=== PATIENT | female | born 1960 | race Caucasian/White ===

== ENCOUNTER → 2017-11-26 13:00 | Outpatient (CLI) | payer MEDICARE, SELFPAY ==
--- NOTE | 2017-11-26 | DI.MRI.S_ITS ---
PROCEDURE: MR HEAD/BRAIN WO/W CON INDICATIONS: neoplasm with UNCERTAIN BEHAVIOR OF BRAIN TECHNIQUE: Noncontrast axial T1 spin echo, axial T2 fast spin echo, sagittal and axial FLAIR, coronal T2 fast spin echo, axial gradient echo, axial diffusion and ADC through the brain. After the administration of contrast, axial and coronal T1 spin echo with fat saturation through the brain. COMPARISON: No prior studies are available for review at the time of this dictation. FINDINGS: Image quality: Diagnostic. CSF spaces: Basal cisterns are patent. No extra-axial fluid collections. Ventricles are normal in size and shape. Brain: No midline shift. No intracranial bleeds or masses. No abnormal intracranial enhancement. There is cerebral volume loss for age. There is periventricular white matter T2 hyperintense lesions seen, which are most prominent involving the right frontal lobe anteriorly and superiorly. The brainstem appears normal. Diffusion-weighted images demonstrate no acute ischemic insults. No chronic ischemic insults. Normal intravascular flow voids are present. Skull and face: Calvarial marrow is normal in signal. Orbits appear normal. Sinuses: Sinuses and mastoids appear clear. IMPRESSION: No masses or abnormal enhancement can be seen. T2 hyperintense white matter lesions are seen. The patient of this age, these most likely relate to chronic small vessel ischemic change. However, differential diagnosis also includes a benign process and nonenhancing brain neoplasm in this patient with this given history. Please correlate with any prior relevant outside examinations. Dictated by: Adrian Irene M.D. on 11/26/2017 at 13:32 Approved by: Adrian Irene M.D. on 11/26/2017 at 13:43
== END ==
PROVIDERS: Visit Provider Family Medicine
DX: D43.2 Neoplasm of uncertain behavior of brain, unspecified (principal)
CPT/HCPCS: 70553; A9579

== ENCOUNTER 2018-07-16 11:28 | Day surgery (SDC) | payer MEDICARE, SELFPAY ==
[2018-07-16 12:02] VITALS: BP 134/84; PULSE 80; RESP 16; TEMP 36.8; O2SAT 100; BMI 26.2
[2018-07-16] MEDS: SODIUM CHLORIDE 0.9% 1,000 ML 200 ML IV (12:03)
--- NOTE | 2018-07-16 12:37 | PM.HP.1 ---
History of Present Illness Date Patient Seen: 07/16/18 Time Patient Seen: 12:37 Chief complaint: colonoscopy 21777 Narrative: 57-year-old female who presents for colorectal screening. Her last examination was 15 years ago. She reports the study was normal at that time. On further history today she denies any gastrointestinal symptoms. No nausea, vomiting, abdominal pain, unintended weight loss, change in bowel habits, diarrhea, constipation, melena, hematochezia, or bright red blood per rectum. Patient History Medical History Yuriy's disease (Acute) Hypothyroidism (Acute) Intracranial neoplasm (Acute) Surgical History History of appendectomy (Acute) History of colonoscopy (Acute) History of recent intracranial surgery (Acute) Social History household members: significant other Family & Social History Social History: household members significant other Meds Home Medications Medication Instructions Recorded Confirmed Type Tirosint 100 mcg DAILY #0 08/26/16 07/16/18 History promethazine #0 08/27/16 History pantoprazole [Protonix] 40 mg PO QDAY #30 tab 08/28/16 Rx Allergies Allergy/AdvReac Type Severity Reaction Status Date / Time fish derived [FISH DERIVED] Allergy Intermediate CONVULSIONS Verified 07/16/18 11:58 morphine [MORPHINE] AdvReac Intermediate NAUSEA AND Verified 07/16/18 11:58 VOMITING. Review of Systems Review of Systems All systems reviewed & are unremarkable except as noted in HPI and below Exam Vital Signs (past 8 hours): - 07/16/18 12:02 Temperature 98.2 F Pulse Rate 80 Respiratory Rate 16 Blood Pressure 134/84 Pulse Oximetry 100 Oxygen Delivery Method Room Air Narrative Exam Narrative: Well-nourished well-developed female in no acute distress. Alert oriented x3 Sclera nonicteric Chest clear to auscultation bilaterally. Regular rate rhythm Abdomen is soft, nondistended, nontender Extremities show no clubbing or cyanosis Objective Labs Labs: No recent laboratory or radiographic studies for review Assessment & Plan Assessment Narrative: 57-year-old female requiring colorectal screening since it has been 15 years from her last examination. Colonoscopy is currently recommended. Technical details of the procedure were discussed. Risks, benefits, alternatives were explained. Risks including but not limited to sedation, aspiration, bleeding, pain, missed lesion, incomplete examination, need for further radiographic studies, colonic perforation, need for major abdominal surgery, and all attendant risks of major surgery were discussed at length. All questions were answered to her satisfaction, and she voiced understanding. Consent was placed on the chart. We will proceed as above.
--- NOTE | 2018-07-16 12:40 | PM.PREOP ---
Pre-operative Note Interval Note History & Physical reviewed/Exam performed by Physician: Yes Changes to H&P: No H&P completed within 30 days and has changed as indicated here:: Patient seen and examined today. History and physical examination placed on the chart. Obviously, there have been no changes in the last 10 min. Proceed with colonoscopy today as planned. ASA Class (for procedural sedation): II
[2018-07-16] MEDS: MIDAZOLAM 5 MG/5 ML VIAL IV (12:47)
[2018-07-16] MEDS: fentaNYL 250 MCG/5 ML INJ IV (12:47)
--- NOTE | 2018-07-16 13:07 | PM.OP.ENDO ---
Operative Date/Time/Diagnoses Date of procedure: 07/16/18 Time of procedure: 13:07 Pre-op diagnosis: Colorectal screening Post-op diagnosis: other (Normal colon and rectum) Procedure & Clinicians Study performed: 1. Sedation per surgeon 2. Colonoscopy Same procedure as scheduled: Yes Indications: 57-year-old female who presents for colorectal screening. Fifteen years since her last exam. Colonoscopy is currently recommended. Surgeon: Kapil Au Procedure Notes SCOAP/Timeout: Yes Procedure in detail: After obtaining informed consent, the patient was brought to the GI suite and placed in the left lateral decubitus position on the examination table. After placement of appropriate monitors, the patient was given incremental doses of Versed and Fentanyl until an appropriate level of sedation was achieved. A time out was held per SCOAP protocol. A digital rectal examination was performed and did not reveal any masses or obstructing lesions. The colonoscope was gently passed into the patient's anus and the entire colon navigated to the level of the cecum with minimal difficulty. Once in the cecum, the scope was withdrawn being sure to go before and beyond all mucosal folds and prominences and get an excellent examination. The findings are noted above. At the level of the rectal vault, the scope was retroflexed and the internal anal canal was examined. The scope was straightened and air aspirated from the colon. The instrument was removed from the patient's body and the procedure was concluded. The patient was allowed to awaken from sedation without difficulty and taken to the post-anesthesia care unit in good condition. Scope withdrawal time: 9:47 min Sedation minutes: 23 Findings: internal hemorrhoids (Grade 2 only) and other findings (Mildly tortuous but otherwise normal colon and rectum) Specimen(s): none sent Complications: none Impression: See above Recommendations: Colonscopy in 10 years and High fiber diet Plan for aftercare: 1. Discharge home Follow up: as needed Disposition: PACU
[2018-07-16 13:16] VITALS: BP 113/76; PULSE 73; RESP 15; TEMP 36.2; O2SAT 98
== END 2018-07-16 13:37 | disposition home or self-care (01) ==
PROVIDERS: PCP Family Medicine; Visit Provider Surgery
PROC: 0DJD8ZZ Inspection of Lower Intestinal Tract, Via Natural or Artificial Opening Endoscopic (ICD-10-PCS; CPT 45378; principal; 2018-07-16 13:00)
DX: Z12.11 Encounter for screening for malignant neoplasm of colon (principal); K64.1 Second degree hemorrhoids; E03.9 Hypothyroidism, unspecified
CPT/HCPCS: G0121; 99152; 99153; J2250; J3010

== ENCOUNTER → 2020-05-12 10:52 | Outpatient (CLI) | payer MEDICARE, SELFPAY ==
--- NOTE | 2020-05-12 10:55 | DI.MG.S_ITS ---
BILATERAL DIGITAL SCREENING MAMMOGRAM 3D/2D WITH CAD: 05/12/2020 CLINICAL: Routine screening. Family history of breast cancer. Comparison is made to exams dated: 02/22/2013 mammogram, 08/03/2018 mammogram, and 08/12/2018 ultrasound - [facility]. The tissue of both breasts is heterogeneously dense. This may lower the sensitivity of mammography. Current study was also evaluated with a Computer Aided Detection (CAD) system. There is a benign cyst in the left breast. No significant masses, calcifications, or other findings are seen in either breast. There has been no significant interval change. IMPRESSION: BENIGN There is no mammographic evidence of malignancy. A 1 year screening mammogram is recommended. This exam was interpreted at Station ID: [id number]. NOTE: For mammograms, a report in lay terms will be sent to the patient. Approximately 15% of breast malignancies will not be visualized mammographically. In the management of a palpable breast mass, a negative mammogram must not discourage biopsy of a clinically suspicious lesion. Electronically Signed By: Parish miranda/yin:05/12/2020 12:12:50 letter sent: Normal Exam ACR BI-RADS Category 2: Benign Finding(s) 3342F
== END ==
PROVIDERS: PCP Family Medicine; Referring Provider Family Medicine; Visit Provider Family Medicine
DX: Z12.31 Encounter for screening mammogram for malignant neoplasm of breast (principal); Z80.3 Family history of malignant neoplasm of breast
CPT/HCPCS: 77063; 77067

== ENCOUNTER → 2021-11-27 07:41 | Outpatient (CLI) | payer MEDICARE, SELFPAY ==
--- NOTE | 2021-11-27 | DI.MG.S_ITS ---
BILATERAL DIGITAL SCREENING MAMMOGRAM 3D/2D WITH CAD: 11/27/2021 CLINICAL: Routine screening. Family history of breast cancer. Comparison is made to exams dated: 05/12/2020 mammogram - [facility], 08/03/2018 mammogram, and 02/22/2013 mammogram - [facility]. The tissue of both breasts is heterogeneously dense. This may lower the sensitivity of mammography. Current study was also evaluated with a Computer Aided Detection (CAD) system. No significant masses, calcifications, or other findings are seen in either breast. There has been no significant interval change. IMPRESSION: NEGATIVE There is no mammographic evidence of malignancy. A 1 year screening mammogram is recommended. This exam was interpreted at Station ID: [id number]. NOTE: For mammograms, a report in lay terms will be sent to the patient. Approximately 15% of breast malignancies will not be visualized mammographically. In the management of a palpable breast mass, a negative mammogram must not discourage biopsy of a clinically suspicious lesion. Electronically Signed By: Iglesia yip/yin:11/27/2021 09:36:52 letter sent: Normal Exam ACR BI-RADS Category 1: Negative 3341F
== END ==
PROVIDERS: PCP Family Medicine; Referring Provider Family Medicine; Visit Provider Family Medicine
DX: Z12.31 Encounter for screening mammogram for malignant neoplasm of breast (principal); Z80.3 Family history of malignant neoplasm of breast
CPT/HCPCS: 77063; 77067

== ENCOUNTER → 2021-12-03 07:24 | Outpatient (CLI) | payer MEDICARE, SELFPAY ==
--- NOTE | 2021-12-03 | DI.MRI.S_ITS ---
PROCEDURE: MR HEAD/BRAIN WO/W CON INDICATIONS: Benign neoplasm of cerebral meninges TECHNIQUE: Noncontrast axial T1 spin echo, axial T2 fast spin echo, sagittal and axial FLAIR, coronal T2 fast spin echo, axial gradient echo, axial diffusion and ADC through the brain. After the administration of contrast, axial and coronal and sagittal T1 spin echo with fat saturation through the brain. COMPARISON: Outside Facility, [facility], MRI HEAD W/WO CONTRAST, 08/04/2013, 10:51. Outside Facility, [facility], MRI HEAD W/WO CONTRAST, 01/03/2014, 18:34. Outside Facility, [facility], MRI HEAD W/WO CONTRAST, 02/02/2015, 14:35. [facility], , MR HEAD/BRAIN WO/W CON, 11/26/2017, 13:11. FINDINGS: Image quality: Excellent. CSF spaces: Basal cisterns are patent. No extra-axial fluid collections. Ventricles are normal in size and shape. Brain: No midline shift. No intracranial bleeds or masses. No abnormal intracranial enhancement. There is cerebral volume loss for age. There is periventricular white matter chronic small vessel ischemic change. The brainstem appears normal. Diffusion-weighted images demonstrate no acute ischemic insults. No chronic ischemic insults. Normal intravascular flow voids are present. Skull and face: Calvarial marrow is normal in signal. Orbits appear normal. Sinuses: Mild mucosal thickening within the left frontal sinus. Sinuses are otherwise clear. Decreased, moderate left mastoid fluid. Right mastoids are clear. IMPRESSION: 1. Mild volume loss and small vessel ischemic disease. 2. No evidence of recurrent meningioma. 3. No acute process. No recent infarct. 4. Postsurgical sequelae within the left mastoids. Dictated by: Farnaz Silva M.D. on 12/03/2021 at 9:49 Approved by: Farnaz Silva M.D. on 12/03/2021 at 9:53
== END ==
PROVIDERS: PCP Family Medicine; Referring Provider Family Medicine; Visit Provider Family Medicine
DX: D32.0 Benign neoplasm of cerebral meninges (principal)
CPT/HCPCS: 70553; A9579

== ENCOUNTER → 2022-11-28 10:38 | Outpatient (CLI) | payer MEDICARE, SELFPAY ==
--- NOTE | 2022-11-28 | DI.MG.S_ITS ---
BILATERAL DIGITAL SCREENING MAMMOGRAM 3D/2D WITH CAD: 11/28/2022 CLINICAL: Routine screening. Family history of breast cancer. Comparison is made to exams dated: 11/27/2021 mammogram, 05/12/2020 mammogram - [facility], and 08/03/2018 mammogram - [facility]. Both breasts are heterogeneously dense, which may obscure small masses (category c / 51-75% glandular tissue). Current study was also evaluated with a Computer Aided Detection (CAD) system. No significant masses, calcifications, or other findings are seen in either breast. There has been no significant interval change. IMPRESSION: NEGATIVE There is no mammographic evidence of malignancy. A 1 year screening mammogram is recommended. Based on Tyrer-Cuzick model (a risk assessment model), the patient's lifetime risk is 24.5% and her 10 year risk is 12.0%. If a patient has an elevated risk, a more comprehensive evaluation should be considered and/or a referral to a genetic counselor. The [employer], [employer], and NCCN Guidelines advise the consideration of Breast MRI as an adjunct to screening mammography in patients whose Lifetime risk to develop breast cancer is 20% or higher. This exam was interpreted at Station ID: [id number]. NOTE: For mammograms, a report in lay terms will be sent to the patient. Approximately 15% of breast malignancies will not be visualized mammographically. In the management of a palpable breast mass, a negative mammogram must not discourage biopsy of a clinically suspicious lesion. Electronically Signed By: Suhail aguirre/yin:11/28/2022 13:09:25 letter sent: Normal Exam ACR BI-RADS Category 1: Negative 3341F
== END ==
PROVIDERS: PCP Physician Assistant; Referring Provider Physician Assistant; Visit Provider Physician Assistant
DX: Z12.31 Encounter for screening mammogram for malignant neoplasm of breast (principal); Z80.3 Family history of malignant neoplasm of breast
CPT/HCPCS: 77063; 77067

== ENCOUNTER 2023-04-18 21:02 | Emergency (ER) | payer MEDICARE, SELFPAY ==
[2023-04-18] VITALS (8 sets, daily range): BP systolic 157–219; BP diastolic 80–107; PULSE 72–78; RESP 16–34; TEMP 36.8; O2SAT 93–95; BMI 32.8
--- NOTE | 2023-04-18 21:21 | DI.RAD.S_ITS ---
PROCEDURE: XR CHEST 1V INDICATIONS: chest pain TECHNIQUE: One view of the chest was acquired. COMPARISON: [facility], , CHEST 1 VIEW, 08/26/2016, 23:27. FINDINGS: Surgical changes and devices: None. Lungs and pleura: Lungs are clear. No pleural effusions or pneumothorax. Mediastinum: Mediastinal contours appear normal. Heart size is normal. Bones and chest wall: No suspicious bony lesions. Overlying soft tissues appear unremarkable. IMPRESSION: No acute cardiopulmonary pathology. Dictated by: Evan Lindsey M.D. on 04/18/2023 at 21:51 Approved by: Evan Lindsey M.D. on 04/18/2023 at 21:52
[2023-04-18 21:47] LABS: Alanine Aminotransferase 53 IU/L (<35); Albumin 4.7 g/dL (3.5-5.0); Albumin Globulin Ratio 1.4 (1.0-2.8); Alkaline Phosphatase 67 U/L (38-126); Aspartate Aminotransferase 35 IU/L (14-36); BUN Creatinine Ratio 28.4 (6-22); Bilirubin Total 0.6 mg/dL (0.2-1.3); Blood Urea Nitrogen 19 mg/dL (7-17); Calcium 10.6 mg/dL (8.4-10.2); Carbon Dioxide 21 mmol/L (22-32); Chloride 106 mmol/L (98-107); Creatine Kinase 126 U/L (30-135); Estimated Glomerular Filt Rate > 60 mL/min (>60); Globulin 3.4 g/dL (1.7-4.1); Glucose 128 mg/dL (80-110); HEMOLYSIS 22 (0-50); INR 0.9 (0.9-1.3); Lipase 191 U/L (23-300); Potassium 4.1 mmol/L (3.4-5.1); Prothrombin Time 10.8 SECONDS (10.1-12.7); Sodium 139 mmol/L (137-145); Total Protein 8.1 g/dL (6.3-8.2)
[2023-04-18 21:48] LABS: Hematocrit 40.9 % (36-46); Hemoglobin 13.9 g/dL (12.0-16.0); Lymphocytes Percent Auto 48.2 % (25-40); Mean Corpuscular HGB Conc 33.9 % (30-36); Mean Corpuscular Hemoglobin 29.4 PG (26-34); Mean Corpuscular Volume 86.8 fL (80-100); Monocytes Percent Auto 8.2 % (3-14); Neutrophils Percent Auto 38.8 % (50-75); Platelet Count 290 X10^3/uL (150-400); Red Blood Cell Count 4.71 X10^6/uL (4.0-5.2); Red Cell Distribution Width 13.8 % (11.6-14.8); White Blood Cell Count 9.1 X10^3/uL (4.5-11.0)
[2023-04-18 21:49] LABS: Add Manual Diff / Slide Review NO; Basophils Absolute Auto 100 /uL (0-100); Basophils Percent Auto 0.8 % (0-2); Eosinophils Absolute Auto 400 /uL (0-450); Lymphocytes Absolute Auto 4400 /uL (1100-4500); Monocytes Absolute Auto 700 /uL (0-900); Neutrophils Absolute Auto 3500 /uL (1500-7000)
[2023-04-18 21:50] LABS: PTT Partial Thromboplastin Tim 30 SECONDS (26-36)
[2023-04-18 21:58] LABS: Troponin I < 0.012 ng/mL (0.01-0.034)
[2023-04-19] VITALS (11 sets, daily range): BP systolic 139–179; BP diastolic 74–98; PULSE 73–86; RESP 14–20; O2SAT 94–96
--- NOTE | 2023-04-19 00:01 | ED.CHESTPAIN ---
HPI - Chest Pain General Chief Complaint: Chest Pain Stated Complaint: chest pain last 4 hours Time Seen by Provider: 04/18/23 22:48 Source: patient Mode of arrival: Ambulatory Limitations: no limitations History of Present Illness HPI narrative: 62-year-old woman with a history of Yuriy's disease and subsequent hypothyroidism presents complaining of 24 hours of substernal to epigastric and left upper quadrant abdominal pain radiating through to the tip of her left scapula. She is never had similar findings. It seems to come in waves that are not associated with eating, fasting or movement. She had a bowel movement about an hour ago and this did not influence her pain. No palpitations, dyspnea, nausea, vomiting, diarrhea, fever or chills. Was noted to have high blood pressure at home at 179/28 and does not have a diagnosis of hypertension. Related Data Home Medications Medication Instructions Recorded Confirmed levothyroxine 13 mcg capsule 100 mcg DAILY ##0 08/26/16 07/16/18 (Tirosint) promethazine 12.5 mg tablet nausea ##0 08/27/16 Previous Rx's Medication Instructions Recorded pantoprazole 40 mg tablet,delayed 40 mg PO QDAY #30 tabs 08/28/16 release (Protonix) omeprazole 40 mg capsule,delayed 40 mg PO DAILY #30 caps 04/19/23 release Allergies Allergy/AdvReac Type Severity Reaction Status Date / Time fish derived [FISH DERIVED] Allergy Intermediate CONVULSIONS Verified 04/18/23 21:20 morphine [MORPHINE] AdvReac Intermediate NAUSEA AND Verified 04/18/23 21:20 VOMITING. Review of Systems Review of Systems Narrative: Pertinent positive and negative findings as per HPI Patient History Medical History (Updated 04/19/23 @ 02:27 by Mara Chisholm MD) Intracranial neoplasm Hypothyroidism Yuriy's disease Surgical History History of recent intracranial surgery History of colonoscopy History of appendectomy Social History household members: significant other Smoking Status: Never smoker Smoking Status: Never smoker alcohol intake frequency: 0-2 drinks per day Substance Use Type: does not use Exam Initial Vital Signs Initial Vital Signs: Vital Signs Temperature 98.2 F 04/18/23 21:13 Pulse Rate 76 04/18/23 21:13 Respiratory Rate 20 04/18/23 21:13 Blood Pressure 219/107 H 04/18/23 21:13 Pulse Oximetry 95 04/18/23 21:13 Oxygen Delivery Method Room Air 04/18/23 21:13 General: Healthy appearing, in no acute distress. Able to give a complete and coherent history. Well-nourished well-developed HEENT: Moist mucous membranes, normal sclera with reactive pupils, Neck: No JVD, supple Respiratory: Lungs are clear to auscultation, no wheezing no rales no rhonchi. Full and symmetrical air movement Chest: No parasternal tenderness with palpation. Cardiac: Regular rate and rhythm no murmurs no bruits Abdomen: Soft, mild tenderness in the epigastrium and left upper quadrant that does reproduce the pain with which she presents, good bowel tones, no flank pain Skin: Warm and dry, no rashes Neurologic: Grossly neurologically intact with no obvious asymmetries or abnormalities Extremities: No trauma, well perfused Psych: Cooperative, appropriate insight and affect Course Orders Ordered: ED Orders 04/18/23 21:15 Complete Blood Count AUTO DIFF Stat Comprehensive Metabolic Panel Stat Lipase Stat Magnesium Stat PTT Partial Thromboplastin Raman Stat Prothrombin Time INR Stat Troponin & CK Cardiac Panel Stat 04/18/23 21:21 XR chest 1V Stat EKG-12 Lead Stat 04/19/23 00:14 CT abdomen pelvis w con Stat Discontinued Medications Al Hydrox/Mg Hydrox/Simethicone 20 ml/ Lidocaine HCl 15 ml 0 ml PO NOW ONE Stop: 04/19/23 00:15 Last Admin: 04/19/23 00:21 Dose: 35 ml Documented By: MILLER Ketorolac Tromethamine (Ketorolac 30 Mg/Ml Vial) 15 mg IV NOW ONE Stop: 04/19/23 00:15 Last Admin: 04/19/23 00:39 Dose: 15 mg Documented By: MYNOR Pantoprazole Sodium (Pantoprazole 40 Mg Vial) 40 mg IV NOW ONE Stop: 04/19/23 00:15 Last Admin: 04/19/23 00:22 Dose: 40 mg Documented By: MILLER Vital Signs Vital signs: Vital Signs - 8 hr 04/18/23 21:13 04/18/23 21:14 04/18/23 21:30 Temperature 98.2 F Pulse Rate 76 78 77 Respiratory Rate 20 34 H Blood Pressure 219/107 H Pulse Oximetry 95 93 94 Oxygen Delivery Method Room Air 04/18/23 22:00 04/18/23 22:00 04/18/23 22:30 Temperature Pulse Rate 76 Respiratory Rate 16 Blood Pressure 167/91 H 173/86 H Pulse Oximetry 94 Oxygen Delivery Method 04/18/23 22:30 04/18/23 23:00 04/18/23 23:00 Temperature Pulse Rate 72 74 Respiratory Rate 18 19 Blood Pressure 157/80 H Pulse Oximetry 94 93 Oxygen Delivery Method MDM - Chest Pain Lab Data 04/18/23 21:15 04/18/23 21:15 Labs: Lab Results 04/18/23 Range/Units 21:15 WBC 9.1 (4.5-11.0) X10^3/uL RBC 4.71 (4.0-5.2) X10^6/uL Hgb 13.9 (12.0-16.0) g/dL Hct 40.9 (36-46) % MCV 86.8 (80-100) fL MCH 29.4 (26-34) PG MCHC 33.9 (30-36) % RDW 13.8 (11.6-14.8) % Plt Count 290 (150-400) X10^3/uL Neut % (Auto) 38.8 L (50-75) % Lymph % (Auto) 48.2 H (25-40) % [place] % (Auto) 8.2 (3-14) % Eos % (Auto) 4.0 (2-4) % Baso % (Auto) 0.8 (0-2) % Neut # (Auto) 3500 (6517-9390) /uL Lymph # (Auto) 4400 (2401-9619) /uL [place] # (Auto) 700 (0-900) /uL Eos # (Auto) 400 (0-450) /uL Baso # (Auto) 100 (0-100) /uL PT 10.8 (10.1-12.7) SECONDS INR 0.9 (0.9-1.3) APTT 30 (26-36) SECONDS Sodium 139 (137-145) mmol/L Potassium 4.1 (3.4-5.1) mmol/L Chloride 106 (98-107) mmol/L Carbon Dioxide 21 L (22-32) mmol/L BUN 19 H (7-17) mg/dL Creatinine 0.67 (0.52-1.04) mg/dL Estimated GFR > 60 (>60) mL/min BUN/Creatinine Ratio 28.4 H (6-22) Glucose 128 H (80-110) mg/dL Calcium 10.6 H (8.4-10.2) mg/dL Magnesium 2.0 (1.6-2.3) mg/dL Total Bilirubin 0.6 (0.2-1.3) mg/dL AST 35 (14-36) IU/L ALT 53 H (<35) IU/L Alkaline Phosphatase 67 (38-126) U/L Total Creatine Kinase 126 (30-135) U/L Troponin I < 0.012 (0.01-0.034) ng/mL Total Protein 8.1 (6.3-8.2) g/dL Albumin 4.7 (3.5-5.0) g/dL Globulin 3.4 (1.7-4.1) g/dL Albumin/Globulin Ratio 1.4 (1.0-2.8) Lipase 191 (23-300) U/L Imaging Data CT scan - abdomen/pelvis: Radiologist's Impression: 1. Questionable diffuse gastric wall thickening which may be due to under distension. Gastritis cannot be excluded, suggest clinical correlation. 2. Mild constipation. No small bowel or colon wall thickening. No free fluid or free air. 3. Hepatic steatosis, with well-circumscribed sub centimeters hypodensities seen in right and left hepatic lobe likely represent benign process such as hepatic cysts. MDM Narrative Medical decision making narrative: CC: Epigastric to substernal chest pain radiating to the left shoulder blade Complicating co-morbidities: Hypothyroidism Data collected from: patient, Differential considered: Acute coronary syndrome, pneumothorax, pleuritic pain, pneumonia, gastritis, gastric ulcer, pancreatitis, abdominal neoplasm Exam documented above, pertinent findings include: No reproducible chest pain with palpation, heart and lungs are unremarkable. Tender in the epigastrium to left upper quadrant without rebound or guarding. Lab Test results independently reviewed as above. Pertinent findings: CBC is unremarkable no evidence of anemia Chemistries are reassuring. Calcium is slightly elevated at 10.6. Initial troponin is undetectable Lipase is unremarkable Independently reviewed EKG sinus rhythm at a rate of 79. Nonspecific T-wave abnormalities Imaging studies independently reviewed: Chest x-ray is unremarkable CT abd/pelvis does not show significant pathology. Question of some gastric wall thickening. Gallbladder, pancreas all appeared normal. There is no free air appreciated Treatments: GI cocktail which was not effective. Toradol which did seem to relieve the pain for a brief bit of time. Pantoprazole IV was also given. Re-evaluations: Patient notes that the Toradol was briefly effective but pain seems to be returning. We talked about narcotic medications however she is driving home. We will give her 4 Percocet tablets to use over the next couple of days should the pain persist. Discussion: 62-year-old woman who presents with 24 hours of substernal epigastric pain radiating through to her left scapula. Cardiac workup is unremarkable. At 24 hours of pain with a negative troponin, a 2nd is not indicated. On physical exam her pain definitely is more abdominal than chest pain. CT scan of the abdomen was obtained and does not have any obvious explanation for her pain. With the question of gastric wall thickening gastritis or developing gastric ulcer certainly is within the differential. At this point there certainly is no evidence of a penetrating ulcer free air in the abdomen. All findings reviewed with patient. We will recommend a month of omeprazole with follow up with her primary care physician within 2-3 weeks. If symptoms are not improving GI consultation may well be the next appropriate step for her. If symptoms change dramatically she understands she does need to return to the emergency department. Questions are answered and she is safe for discharge Discharge Plan Departure Patient Disposition: Home Clinical Impression: Acute epigastric pain Instructions: DI for Epigastric Pain Activity Restrictions/Additional Instructions: Thank you for coming in today. Your visit was very appropriate. There is not any indication that this is your heart causing your symptoms today. When pushing on your belly and pain is reproduced it certainly makes me think of stomach gallbladder or pancreas. Your CT scan did not show significant gallbladder or pancreatic abnormalities. There is no evidence of a perforated ulcer in your stomach. The CT scan also suggests some swelling to the wall of your stomach. This can be related to a virus or inflammation in the lining of the stomach. I am going to give you a prescription for omeprazole, 40 mg to be taken daily. I would recommend trying this for a month. I would also recommend a follow-up with your primary care provider within 2 weeks. If your pain is not obviously improving at that point a referral to a construction contractor maybe the next appropriate step in your workup If you have new findings, develop any black or bloody stool, you are vomiting up anything that looks like blood or coffee-grounds you do need to return to the emergency department Prescriptions: New omeprazole 40 mg capsule,delayed release(DR/EC) 40 mg PO DAILY Qty: 30 0RF No Action Tirosint 13 mcg capsule 100 mcg DAILY Qty: 0 promethazine 12.5 MG tablet Qty: 0 Patient Comments: hasn't taken for years pantoprazole [Protonix] 40 MG tablet,delayed release (DR/EC) 40 mg PO QDAY Qty: 30 0RF Rx Instructions: Does not take this medication Referrals: Ann Macias PA-C [Primary Care Provider] - Stand Alone Forms: Patient Portal/API
--- NOTE | 2023-04-19 00:14 | DI.CT.S_ITS ---
PROCEDURE: CT ABDOMEN PELVIS W CON INDICATIONS: upper abdominal pain TECHNIQUE: After the administration of intravenous contrast, axial sections acquired from the lung bases to the pubic symphysis. Coronal and sagittal reformats were performed. For radiation dose reduction, the following was used: automated exposure control, adjustment of mA and/or kV according to patient size. COMPARISON: None. FINDINGS: Image quality: Excellent. Lung bases: Dependent atelectasis in posterior aspect of bilateral lung bases are seen Heart: No significant findings. ABDOMEN: Liver: There is mild hepatic steatosis. Well-circumscribed hypodense areas are seen in anterior right hepatic dome measures up to 4 mm in size . 5 millimeter hypodensity is noted in lateral segment of left hepatic lobe. Gallbladder: Gallbladder is within normal limits. Biliary ducts: Unremarkable. Pancreas: Unremarkable. Spleen: Unremarkable. Adrenal Glands: Unremarkable. Kidneys and Ureters: Unremarkable. Stomach and Bowel: There is no bowel obstruction. Questionable gastric wall thickening is seen. No small bowel or colon wall thickening. Mild fecal stasis in the colon is seen. At appendix is surgically absent with surgical clips seen in right lower quadrant. No abscess collection. Peritoneum: No abnormal intraperitoneal fluid. No free air. Ventral Wall: No hernias. Abdominal Nodes: No retroperitoneal or mesenteric adenopathy by size criteria. Vessels: Aorta and inferior vena cava are normal in size. PELVIS: Pelvic Organs: Unremarkable. Bladder: Unremarkable. Pelvic Nodes: No enlarged lymph nodes. Miscellaneous: No hernias are seen. Bones: No suspicious bony lesion. No acute vertebral body compression fracture. IMPRESSION: 1. Questionable diffuse gastric wall thickening which may be due to under distension. Gastritis cannot be excluded, suggest clinical correlation. 2. Mild constipation. No small bowel or colon wall thickening. No free fluid or free air. 3. Hepatic steatosis, with well-circumscribed sub centimeters hypodensities seen in right and left hepatic lobe likely represent benign process such as hepatic cysts. Dictated by: Evan Lindsey M.D. on 04/19/2023 at 0:51 Approved by: Evan Lindsey M.D. on 04/19/2023 at 0:54
[2023-04-19] MEDS: MAG HYDROX/ALUMINUM/SIMETH SUS 20 ML, LIDOCAINE VISCOUS 2% 15 ML PO (00:21)
[2023-04-19] MEDS: PANTOPRAZOLE 40 MG VIAL IV (00:22)
[2023-04-19] MEDS: KETOROLAC 30 MG/ML VIAL 15 MG IV (00:39)
[2023-04-19] MEDS: OXYCODONE/APAP 5/325 PREPACK 1 BOTTLE MISC (02:53)
== END 2023-04-19 02:45 | disposition home or self-care (01) ==
PROVIDERS: Emergency Provider Emergency Medicine; PCP Physician Assistant
DX: R10.13 Epigastric pain (principal); R07.9 Chest pain, unspecified
CPT/HCPCS: 71045; 74177; 80053; 82550; 83690; 83735; 84484; 85025; 85610; 85730; 93005; 93010; 96374; 96375; 99284; C9113; J1885; Q9967

== ENCOUNTER → 2023-05-08 11:01 | Outpatient (CLI) | payer MEDICARE, SELFPAY ==
--- NOTE | 2023-05-08 11:05 | DI.MRI.S_ITS ---
BREAST MRI OF BOTH BREASTS: 05/08/2023 CLINICAL: Family history of breast cancer, Dense breast tissue. Comparison is made to exams dated: 11/28/2022 mammogram, 11/27/2021 mammogram, and 05/12/2020 mammogram - [facility]. PROCEDURE: MR BREAST BI WO/W CON INDICATIONS: Encounter for other screening for malignant neopla TECHNIQUE: The patient was placed prone in a dedicated breast imaging coil. Precontrast axial STIR and 3D FLASH without fat saturation sequences were obtained. Both before and after bolus injection of contrast, sequential 1-minute axial 3D FLASH with fat saturation sequences for 3 time points, with subtraction images and maximum intensity projections (MIP's) generated. Delayed sagittal FLASH images with fat saturation were also obtained. Computer-aided detection, including computer algorithm analysis of MRI image data for lesion detection and characterization, pharmacokinetic analysis, with further physician review for interpretation, was performed. FINDINGS: Image quality: Excellent. There is mild left and minimal right background parenchymal enhancement. The breasts are heterogeneously dense. Right breast: No suspicious mass, non-mass enhancement, or focus. Left breast: No suspicious mass, non-mass enhancement, or focus. Miscellaneous: No suspicious findings in the partially visualized anterior mediastinum or upper abdomen. No suspicious adenopathy within the field of view. IMPRESSION: NEGATIVE No suspicious findings in either breast. Recommend annual screening mammogram and supplemental MRI screening. BIRADS 1 COMMENT: The imaging literature indicates that a negative contrast breast MRI examination has a high sensitivity and a moderate specificity for detecting and excluding invasive carcinomas to a detection threshold of 3-5 mm; nonetheless, appropriate clinical and mammographic follow-up are recommended. MRI is not sensitive for detecting DCIS (ductal carcinoma in situ) and may not detect large invasive neoplasms that show only minimal enhancement such as mucinous carcinoma. If there are suspicious calcifications or clinically worrisome palpable masses, then biopsy should still be considered. Invasive neoplasms can be hidden by co-existent and benign enhancement caused by mastitis, hormone therapy effects, radiation therapy, , and recent biopsy or surgery. False positive examinations can occur in a number of circumstances, including breasts that have recently been subject to invasive procedures and those that contain atypical ductal hyperplasia, hormonally stimulated glandular tissue, fat necrosis, or radial scars. This exam was interpreted at Station ID: [id number]. Electronically Signed By: Fer Pemberton M.D. lc/:05/08/2023 14:20:16 letter sent: Normal Exam ACR BI-RADS Category 1: Negative [id number]
== END ==
PROVIDERS: PCP Physician Assistant; Referring Provider Physician Assistant; Visit Provider Physician Assistant
DX: Z12.39 Encounter for other screening for malignant neoplasm of breast (principal)
CPT/HCPCS: 77049; A9579

== ENCOUNTER 2023-08-17 08:47 | Emergency (ER) | payer MEDICARE, SELFPAY ==
[2023-08-17 09:12] VITALS: BP 145/98; PULSE 86; RESP 18; TEMP 36.4; O2SAT 94; BMI 32.8
--- NOTE | 2023-08-17 09:16 | DI.RAD.S_ITS ---
PROCEDURE: XR SHOULDER RT MIN 2V INDICATIONS: fall TECHNIQUE: 3 views of the shoulder were acquired. COMPARISON: [facility], CR, XR CHEST 1V, 04/18/2023, 21:23. FINDINGS: Bones: Negative for acute fracture. The distal clavicle demonstrates chronic irregularity, which is stable compared to 04/18/2023. No dislocation is seen. The visualized ribs appear intact. No suspicious lytic or blastic lesions are seen. Soft tissues: No suspicious soft tissue calcifications. The visualized lung demonstrates an unremarkable appearance. IMPRESSION: No acute bony abnormality. A remote distal right clavicle fracture is seen, which is stable from the prior. If it would be helpful for clinical management decision making, please consider a dedicated, scheduled shoulder MRI for further evaluation (assuming that there is no contraindication). Dictated by: Adrian Irene M.D. on 08/17/2023 at 8:33 Approved by: Adrian Irene M.D. on 08/17/2023 at 8:34
--- NOTE | 2023-08-17 09:27 | DI.RAD.S_ITS ---
PROCEDURE: XR HUMERUS RT 2V INDICATIONS: mid shaft humerus pain after fall TECHNIQUE: 2 views of the humerus were acquired. COMPARISON: [facility], CR, XR SHOULDER RT MIN 2V, 08/17/2023, 9:17. [facility], CR, XR CHEST 1V, 04/18/2023, 21:23. FINDINGS: Bones: No acute fractures or dislocations. A remote fracture of the right distal clavicle is again seen. No suspicious bony lesions. The visualized ribs appear intact. Soft tissues: No suspicious soft tissue calcifications. The visualized lung demonstrates an unremarkable appearance. IMPRESSION: No acute bony abnormality. Remote fracture of the right distal clavicle noted. Dictated by: Adrian Irene M.D. on 08/17/2023 at 8:39 Approved by: Adrian Irene M.D. on 08/17/2023 at 8:40
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
[2023-08-17 10:26] VITALS: BP 143/93; PULSE 83; RESP 18; O2SAT 95
== END 2023-08-17 10:28 | disposition home or self-care (01) ==
PROVIDERS: Emergency Provider Emergency Medicine; PCP Physician Assistant
DX: M25.511 Pain in right shoulder (principal); M79.601 Pain in right arm
CPT/HCPCS: 73030; 73060; 99283

== ENCOUNTER → 2024-03-25 16:44 | Outpatient (CLI) | payer MEDICARE, SELFPAY ==
--- NOTE | 2024-03-25 16:46 | DI.MG.S_ITS ---
BILATERAL DIGITAL SCREENING MAMMOGRAM 3D/2D WITH CAD: 03/25/2024 CLINICAL: Routine screening. Family history of breast cancer. Comparison is made to exams dated: 11/28/2022 mammogram, 11/27/2021 mammogram, and 05/12/2020 mammogram - [facility]. The breasts are heterogeneously dense, which may obscure small masses (category c / 51-75% glandular tissue). Current study was also evaluated with a Computer Aided Detection (CAD) system. There is an asymmetry in the left breast posterior depth inferior region seen on the mediolateral oblique view only. No other significant masses, calcifications, or other findings are seen in either breast. IMPRESSION: INCOMPLETE: NEED ADDITIONAL IMAGING EVALUATION The asymmetry in the left breast is indeterminate. A diagnostic mammogram and ultrasound is recommended. Based on Tyrer-Cuzick model (a risk assessment model), the patient's lifetime risk is 23.6% and her 10 year risk is 11.9%. If a patient has an elevated risk, a more comprehensive evaluation should be considered and/or a referral to a genetic counselor. The [place] [employer] [employer], [employer], and NCCN Guidelines advise the consideration of Breast MRI as an adjunct to screening mammography in patients whose Lifetime risk to develop breast cancer is 20% or higher. This exam was interpreted at Station ID: [id number]. NOTE: For mammograms, a report in lay terms will be sent to the patient. Approximately 15% of breast malignancies will not be visualized mammographically. In the management of a palpable breast mass, a negative mammogram must not discourage biopsy of a clinically suspicious lesion. Electronically Signed By: Raysa Robin M.D., Ph.D. eb/:03/27/2024 00:28:05 letter sent: Additional Imaging Needed ACR BI-RADS Category 0: Incomplete: Need Additional Imaging Evaluation
== END ==
PROVIDERS: PCP Physician Assistant; Referring Provider Physician Assistant; Visit Provider Physician Assistant
DX: Z12.31 Encounter for screening mammogram for malignant neoplasm of breast (principal); Z80.3 Family history of malignant neoplasm of breast; R92.333 Mammographic heterogeneous density, bilateral breasts
CPT/HCPCS: 77063; 77067

== ENCOUNTER → 2024-04-15 09:11 | Outpatient (CLI) | payer MEDICARE, SELFPAY ==
--- NOTE | 2024-04-15 09:12 | DI.MG.S_ITS ---
UNILATERAL LEFT DIGITAL DIAGNOSTIC MAMMOGRAM 3D/2D WITH ADDITIONAL VIEWS: 04/15/2024 CLINICAL: Additional evaluation requested from prior study. Comparison is made to exams dated: 03/25/2024 mammogram, 11/28/2022 mammogram, and 11/27/2021 mammogram - [facility]. The breasts are heterogeneously dense, which may obscure small masses (category c / 51-75% glandular tissue). There is a 0.7 cm oval asymmetry in the left breast posterior depth inferior region seen on the mediolateral oblique view only. This is not definitively seen on the craniocaudal view and less prominent on the lateral views in today's additional views. No other significant masses or calcifications are seen in the breast. IMPRESSION: INCOMPLETE: NEED ADDITIONAL IMAGING EVALUATION The 0.7 cm oval asymmetry in the left breast resembles a cyst or a lymph node versus possible tortuous of turn of the vessel, and is indeterminate. An ultrasound is recommended for further evaluation and is scheduled to immediately follow this examination. Based on Tyrer-Cuzick model (a risk assessment model), the patient's lifetime risk is 23.6% and her 10 year risk is 11.9%. If a patient has an elevated risk, a more comprehensive evaluation should be considered and/or a referral to a genetic counselor. The [place] [employer], [place] [employer], and NCCN Guidelines advise the consideration of Breast MRI as an adjunct to screening mammography in patients whose Lifetime risk to develop breast cancer is 20% or higher. This exam was interpreted at Station ID: [id number]. NOTE: For mammograms, a report in lay terms will be sent to the patient. Approximately 15% of breast malignancies will not be visualized mammographically. In the management of a palpable breast mass, a negative mammogram must not discourage biopsy of a clinically suspicious lesion. Electronically Signed By: Parish Calhoun M.D. aty/:04/15/2024 10:05:37 letter sent: Additional Imaging Needed ACR BI-RADS Category 0: Incomplete: Need Additional Imaging Evaluation
--- NOTE | 2024-04-15 09:13 | DI.US.S_ITS ---
LIMITED ULTRASOUND OF LEFT BREAST: 04/15/2024 CLINICAL: Patient returns today to evaluate an asymmetry in the left breast. Comparison is made to exams dated: 04/15/2024 mammogram, 03/25/2024 mammogram, 05/08/2023 breast MRI, 11/28/2022 mammogram, 05/12/2020 mammogram, and 11/27/2021 mammogram - [facility]. Color flow and real-time ultrasound of the left breast 5 o'clock region were performed. Madrigal scale images of the real-time examination were reviewed. There is a 0.9 cm x 0.3 cm x 0.5 cm wider than tall oval cyst with a smooth internal wall in the left breast at 5 o'clock posterior depth 9 cm from the nipple. This oval cyst is hypoechoic with a well-defined boundary and internal echoes. This correlates with mammography findings. Color flow imaging demonstrates that there is no vascularity present. IMPRESSION: PROBABLY BENIGN The 0.9 cm x 0.3 cm x 0.5 cm wider than tall oval cyst in the left breast resembles a complicated cyst and is probably benign. A follow-up left mammogram and a left ultrasound in 6 months is recommended to demonstrate stability. Findings and recommendations were conveyed to the patient during today's evaluation. This exam was interpreted at Station ID: [id number]. Electronically Signed By: Parish Calhoun M.D. aty/:04/15/2024 10:31:57 letter sent: Followup Recommended ACR BI-RADS Category 3: Probably Benign
== END ==
PROVIDERS: PCP Physician Assistant; Referring Provider Physician Assistant; Visit Provider Physician Assistant
DX: R92.8 Other abnormal and inconclusive findings on diagnostic imaging of breast (principal); R92.333 Mammographic heterogeneous density, bilateral breasts; N60.02 Solitary cyst of left breast
CPT/HCPCS: 76642; 77065; G0279

== ENCOUNTER → 2024-06-10 14:37 | Outpatient (CLI) | payer MEDICARE, SELFPAY ==
--- NOTE | 2024-06-10 14:38 | DI.RAD.S_ITS ---
PROCEDURE: XR DEXA AXIAL SKELETON INDICATIONS: POSTMENOPAUSAL STATUS COMPARISON: None. FINDINGS: Lumbar Spine: Bone mineral density 0.975 g/cm2, T score -0.7. Left Hip: Bone mineral density 0.993 g/cm2, T score 0.4. Left Femoral Neck: Bone mineral density 0.785 g/cm2, T score -0.6. Right Hip: Bone mineral density 1.004 g/cm2, T score 0.5. Right Femoral Neck: Bone mineral density 0.871 g/cm2, T score 0.2. Fracture Risk Calculation (when applicable): 10-year fracture risk of a major osteoporotic fracture 7.2 percent and of a hip fracture 0.4 percent. (T score greater or equal to -1.0 to: NORMAL) (T score from -1.1 to -2.4: OSTEOPENIA) (T score less than or equal to -2.5: OSTEOPOROSIS) IMPRESSION: Normal bone mineral density. Follow-up guidelines as follows: Osteoporosis: Consider a repeat DEXA and Vertebral Fracture Assessment (VFA) exam in 2 years or sooner if medically necessary, to reassess this patient's status. Osteopenia: Consider a repeat DEXA in 2-3 years to reassess this patient's status, or if there is a new clinical indication. Normal: Consider a repeat DEXA in 5 years or sooner, or if there is a new clinical indication. All treatment decisions require clinical judgment and consideration of individual patient factors, including patient preferences, comorbidities, previous drug use, risk factors not captured in the FRAX model (e.g., frailty, falls, vitamin D deficiency, increased bone turnover, interval significant decline in bone density ) and possible under- or over-estimation of fracture risk by FRAX. In addition, the NOF Guide recommends that FDA-approved medical therapies be considered in postmenopausal women and men age >= 50 years with a: * Hip or vertebral (clinical or morphometric) fracture * T-score of <=-2.5 at the spine or hip * Ten-year fracture probability by FRAX of >= 3% for hip fracture or >=20% for major osteoporotic fracture. People with diagnosed cases of osteoporosis or at high risk for fracture should have regular bone mineral density tests. For patients eligible for Medicare, routine testing is allowed once every 2 years. The testing frequency can be increased to one year for patients who have rapidly progressing disease, those who are receiving or discontinuing medical therapy to restore bone mass, or have additional risk factors. Dictated by: Evan Lindsey M.D. on 06/11/2024 at 10:21 Approved by: Evan Lindsey M.D. on 06/11/2024 at 10:21
== END ==
LOC: RAD 14:38
PROVIDERS: PCP Physician Assistant; Referring Provider Physician Assistant; Visit Provider Physician Assistant
DX: Z78.0 Asymptomatic menopausal state (principal)
CPT/HCPCS: 77080

== ENCOUNTER → 2025-02-16 07:59 | Outpatient (CLI) | payer MEDICARE, SELFPAY ==
--- NOTE | 2025-02-16 08:04 | DI.US.S_ITS ---
MM diagnostic mammo BI, US breast LT limited: 02/16/2025 BI-RADS: 3 CLINICAL: 64-year old female for bilateral diagnostic mammogram and left diagnostic breast ultrasound. Tyrer-Cuzick lifetime risk of 14.2%. Current reported family history of breast cancer: sister. PRIOR EXAMS 04/15/2024, 03/25/2024, 05/08/2023, 11/28/2022, MAMMOGRAPHY TECHNIQUE: 2D and 3D (tomosynthesis) digital mammographic views obtained, with additional images as needed for full coverage. Current study was also evaluated with a Computer Aided Detection (CAD) system. ULTRASOUND TECHNIQUE Real-time hunt scale and color doppler imaging of the area of clinical interest was performed with image documentation. Left targeted breast ultrasound of the area of clinical interest and the axilla was performed with image documentation. DENSITY C. The breasts are heterogeneously dense, which may obscure small masses. MAMMOGRAPHY FINDINGS Left (finding-1): MLO only, Lower, Posterior depth: There is an asymmetry seen only on one view that has decreased in size. Bilateral: No suspicious mass, asymmetry, microcalcification, or other abnormality seen. ULTRASOUND FINDINGS Left (finding-1): Lower Outer at 5:00, 9.0 cm from nipple, measuring 0.7 x 0.4 x 0.2 cm: Correlating with findings on mammogram there is a complicated cyst that is unchanged in size and appearance. The cystic lesion contains fluid-debris level. IMPRESSION: Right * No evidence of malignancy. Left (Complicated Cyst): Lower Outer at 5:00, 9.0 cm from nipple, measuring 0.7 x 0.4 x 0.2 cm * Probably Benign. RECOMMENDATIONS Left: Lower Outer at 5:00, 9.0 cm from nipple * Followup with diagnostic mammography in one year. * Followup with diagnostic ultrasound in one year. OVERALL ASSESSMENT CATEGORY BI-RADS-3: Probably Benign. ELECTRONICALLY SIGNED: Fer Pemberton M.D. on 02/17/2025 at 02:15:37 PM PT Interpreting Station ID: [id number]
--- NOTE | 2025-02-16 08:04 | DI.MRI.S_ITS ---
MR breast BI wo/w con: 02/16/2025. BI-RADS: 2 CLINICAL: 64-year old female for bilateral diagnostic breast MRI. Current reported family history of breast cancer: sister. PRIOR EXAMS 04/15/2024, 03/25/2024, 05/08/2023, 11/28/2022, 11/27/2021, 05/12/2020. MRI TECHNIQUE Bilateral breast MRI was performed on a 1.5 Patricia magnet using a dedicated breast coil with mild compression. Axial T1 and T2 STIR sequences were obtained. Dynamic contrast enhanced VIBRANT fat-suppressed sequences were obtained. Delayed sagittal high resolution or sagittal reconstructed isotropic sequence was also obtained. Subtraction images and maximum intensity projection images were obtained. The study was evaluated using [employer] ([employer]) software. Gadavist was injected intravenously: mL. IV Contrast: 20 ml ProHance. FIBROGLANDULAR TISSUE Bilateral: C. Heterogeneous fibroglandular tissue. BACKGROUND PARENCHYMAL ENHANCEMENT Bilateral: Minimal symmetrical background parenchymal enhancement. BREAST FINDINGS Right: There is no suspicious mass or non-mass enhancement. No suspicious architectural distortion. No skin or nipple abnormalities. No internal mammary chain or axillary adenopathy. Left: There is no suspicious mass or non-mass enhancement. No suspicious architectural distortion. No skin or nipple abnormalities. No internal mammary chain or axillary adenopathy. There are no MRI abnormalities seen in the left breast lower outer quadrant to correlate with complicated cyst seen at 5:00 posterior depth on comparison ultrasound. CHEST FINDINGS Visualized portions of the chest appear unremarkable. ABDOMEN FINDINGS Visualized portions of the upper abdomen appear unremarkable. IMPRESSION: Right * No evidence of malignancy. Left * No evidence of malignancy with benign findings. RECOMMENDATIONS Bilateral * Annual screening mammography. OVERALL ASSESSMENT CATEGORY BI-RADS-2: Benign. ELECTRONICALLY SIGNED: Parish Calhoun M.D. on 02/16/2025 at 11:15:44 AM PT Interpreting Station ID: [id number]
== END ==
LOC: MRI 08:01
DX: R92.8 Other abnormal and inconclusive findings on diagnostic imaging of breast (principal); R92.333 Mammographic heterogeneous density, bilateral breasts; N60.02 Solitary cyst of left breast; Z80.3 Family history of malignant neoplasm of breast
CPT/HCPCS: 76642; 77049; 77066; G0279; A9579